=== PATIENT | female | born 1955 | race Caucasian/White ===

== ENCOUNTER 2017-07-06 17:53 | Emergency (ER) | payer OTHER, MEDICAID ==
[~2017-07-06] VITALS: Ht 160 cm; Wt 43.1 kg
[~2017-07-06 17:53] MED LIST: ACYCLOVIR 400400 MG PO; CRESTOR10 MG PO; CRESTOR40 MG PO; CYMBALTA60 MG PO; FLEXERIL PO; HYDROCODONE-AP1 EAC6 PO; IBUPROFEN 600600 M1 PO; LAMICTAL100 MG PO; LEVOTHYROXIN0.075 MG PO; MIRAPEX1 MG PO; NEURONTIN 300300 M1 PO; OLANZAPINE20 MG PO; RISPERDAL 1 MG T1 MG PO; SERTRALINE HCL50 MG PO; SONATA10 MG PO; SYNTHROID175 MCG PO; TORADOL 10 MG T10 MG PO; TRAZODONE 150150 M1 PO; VALIUM5 MG PO; WELLBUTRIN SR150 MG PO; XANAX1 MG PO; XARELTO15 MG PO; ZYPREXA 10 MG T10 MG PO
[2017-07-06] MEDS ORDERED: XARELTO20 MG PO (18:04)
[2017-07-06] MEDS ORDERED: CALCIUM500 M1 PO (18:05)
[2017-07-06 18:25] LABS: ABSOLUTE BASOPHILS 0.1 thou/uL (0.0-0.2); ABSOLUTE EOSINOPHILS 0.1 thou/uL (0.0-0.7); ABSOLUTE LYMPHOCYTES 4.7 thou/uL (0.8-5.3); ABSOLUTE MONOCYTES 0.6 thou/uL (0.0-1.2); BASOPHILS 0.7 %; EOSINOPHILS 0.8 %; HEMATOCRIT 41.5 % (37.0-47.0); HEMOGLOBIN 13.9 gm/dL (12.0-15.0); LYMPHOCYTES 45.2 %; MCHC 33.4 g/dL (28.0-37.0); MCV 89.7 fL (80.0-100.0); MONOCYTES 5.5 %; MPV 8.6 fl. (7.2-11.1); NUCLEATED RBCS 0 /100WBC; PLATELET COUNT* 309 thou/uL (150-400); POLYS 47.8 %; RBC 4.63 mil/uL (4.20-5.00); RDW-CV 13.9 % (10.5-14.5); WBC 10.4 thou/uL (4.0-11.0)
[2017-07-06 18:25] LABS: URINE BILIRUBIN NEGATIVE (Negative); URINE BLOOD NEGATIVE (Negative); URINE CLARITY CLEAR; URINE COLOR YELLOW; URINE GLUCOSE-RANDOM NEGATIVE (Negative); URINE KETONES NEGATIVE (Negative); URINE NITRITE-REFLEX NEGATIVE (Negative); URINE PROTEIN NEGATIVE (Negative); URINE SPECIFIC GRAVITY 1.015 (1.005-1.030); URINE UROBILINOGEN 0.2 E.U./dl (0.2-1.0)
[2017-07-06 18:26] LABS: URINE LEUKOCYTES-REFLEX 2+ (Negative)
[2017-07-06 18:31] LABS: ANION GAP 6 mmol/L (7-16); BUN 17 mg/dL (7-18); CALCIUM 9.7 mg/dL (8.5-10.1); CHLORIDE 104 mmol/L (98-107); CO2 30 mmol/L (21-32); CREATININE 0.9 mg/dL (0.6-1.3); GLUCOSE 109 mg/dL (70-99); POTASSIUM 3.7 mmol/L (3.5-5.1); SODIUM 140 mmol/L (136-145)
[2017-07-06 18:36] LABS: SQUAMOUS 4-10 Moderate /LPF (0-3)
[2017-07-06 18:37] LABS: MUCUS 0-3 Light strn/LPF (None Seen); URINE WBC-REFLEX 6-15 Few /HPF (0-5)
[2017-07-06 18:38] LABS: BACTERIA-REFLEX 1-9 Few /HPF (None Seen); HYALINE CASTS 0-3 Few /LPF (None Seen)
[2017-07-06 18:39] LABS: CRYSTALS None Seen /LPF (None Seen); URINE RBC None Seen /HPF (0-2)
[2017-07-06 18:41] LABS: ALBUMIN 4.3 g/dL (3.4-5.0); ALKALINE PHOSPHATASE 114 U/L (46-116); LIPASE 148 U/L (73-393); NT-PRO BRAIN NAT PEPTIDE 38 pg/mL (<300); SGOT 23 U/L (15-37); SGPT 26 U/L (30-65); TOTAL BILIRUBIN 0.4 mg/dL (<0.1-1.0); TROPONIN-I LEVEL <0.06 ng/mL (<0.06)
[2017-07-06] MEDS ORDERED: SENEXON-S TABL1 EACH PO (19:39)
[2017-07-06] MEDS ORDERED: MACROBID 100 M100 M2 PO (19:39)
[2017-07-06 20:03] VITALS: BP 107/69
--- NOTE | 2017-07-07 12:55 | EKG ---
[place] [address] ELECTROCARDIOGRAM REPORT Name: KEVIN SALAZAR Room: [facility]#: [id number] Admission: 07/06/17 Attend Phys: Discharge: 07/06/17 Date of : 57 Report #: [id number] THIS REPORT FOR: //name// [facility] ED Test Date: 2017-07-06 Test Time: 18:25:48 Pat Name: KEVIN SALAZAR Department: Room: Gender: F Information Assurance Officer: Jenelle [place] : 1955 Requested By: Radha Ruiz Order Number: [id number] MD: Eugenio Bobby Measurements Intervals [place] Rate: 73 P: 62 TX: 185 QRS: 74 QRSD: 101 T: 28 QT: 361 QTc: 398 Interpretive Statements Sinus rhythm Nonspecific T abnormalities, anterior leads Compared to ECG 03/23/2017 01:49:16 No significant changes Electronically Signed On 07-07-2017 12:55:09 ENDOSCOPY TECH by Eugenio Bobby [email or web address] <ELECTRONICALLY SIGNED> By: Eugenio Bobby MD, [facility] 07/07/17 1255 24 24 Eugenio Bobby MD, FACC /EPI
== END 2017-07-06 20:05 | disposition home or self-care (01) ==
LOC: M.ERS 17:53
PROVIDERS: Nurse Practitioner
DX: K59.00 Constipation, unspecified (principal); N39.0 Urinary tract infection, site not specified; B96.89 Other specified bacterial agents as the cause of diseases classified elsewhere; H73.892 Other specified disorders of tympanic membrane, left ear; M41.9 Scoliosis, unspecified; E03.9 Hypothyroidism, unspecified; F41.9 Anxiety disorder, unspecified; F31.9 Bipolar disorder, unspecified; Z86.711 Personal history of pulmonary embolism; Z88.5 Allergy status to narcotic agent; Z88.8 Allergy status to other drugs, medicaments and biological substances

== ENCOUNTER → 2019-11-22 | Outpatient (CLI) | payer OTHER, MEDICAID ==
[~2019-11-22] MED LIST changes: +CALCIUM500 M1 PO; +MACROBID 100 M100 M2 PO; +SENEXON-S TABL1 EACH PO; +XARELTO20 MG PO
[2019-11-22 12:57] LABS: CREATININE 0.9 mg/dL (0.6-1.3)
== END ==
LOC: M.LAB 11-21 14:00 → M.CT 11-21 14:30 → M.LAB 12:00
PROVIDERS: ATTEND Family Medicine
DX: K57.30 Diverticulosis of large intestine without perforation or abscess without bleeding (principal); K63.89 Other specified diseases of intestine; I70.0 Atherosclerosis of aorta